=== PATIENT | female | born 1995 | race Caucasian/White ===

== ENCOUNTER 2019-06-12 22:42 | Emergency (ER) | payer BC, MEDICAID ==
[2019-06-12] MEDS ORDERED: 0.9 % SODIUM CHLORIDE 1,000 ML BAG IV ONE (22:54)
--- NOTE | 2019-06-12 22:59 | Emergency Department Record ---
History of Present Illness - General Chief Complaint: Confusion Stated Complaint: NOT FEELING RIGHT Time Seen by Provider: 06/12/19 22:44 Source: Patient, Family Mode of Arrival: Ambulatory Limitations: No limitations - History of Present Illness Initial Comments: 24 yo female presents "not feeling normal". She is the primary historian. She states she woke up at 10am feeling normal. She works at a restaurant starting at 5pm. After about 2 hours of work she states she felt hot, sweaty, and nauseated. She has felt weak since then. No vomiting. She states she feels emotional with crying at times. She denies drugs or alcohol. She is not on any medications. No headache, chest pain, cough, abdominal pain. She has been in her usual states of health. She does report her menstrual cycles have been irregular for a few months. MD Complaint: Weakness Onset/Timin -: Hour(s) Severity: Mild Consistency: Constant Context: Other (Onset at work) Associated Symptoms: Nausea/Vomiting (nausea without vomiting), Weakness Treatment Prior to Arrival Comment:: ate dinner - [place] Coma Scale Eye Response: (4) Open spontaneously Motor Response: (6) Obeys commands Verbal Response: (5) Oriented [place] Total: 15 - Symptoms of Stroke Onset of Symptoms Date: 06/12/19 - Related Data Home Medications Medication Instructions Recorded Confirmed Last Taken No Home Med [NO HOME MEDS] 06/12/19 06/12/19 Unknown Allergies Allergy/AdvReac Type Severity Reaction Status Date / Time No Known Drug Allergies Allergy Verified 06/12/19 22:55 Travel Screening - Travel/Exposure Within Last 30 Days Have you traveled within the last 30 days?: No - Travel/Exposure Within Last Year Have you traveled outside the [place] in the last year?: No - Additonal Travel Details Have you been exposed to anyone with a communicable illness?: No - Travel Symptoms Symptom Screening: None Review of Systems Constitutional: Reports: Weakness. Denies: Chills, Fever, Malaise Eyes: Denies: Eye discharge, Eye pain, Photophobia, Vision change ENT: Denies: Congestion, Dental pain, Ear pain, Epistaxis, Throat pain Respiratory: Denies: Cough, Dyspnea, Hemoptysis, Stridor, Wheezes Cardiovascular: Denies: Arrhythmia, Chest pain, Edema, Palpitations, Syncope Endocrine: Reports: Fatigue. Denies: Polydipsia, Polyuria Gastrointestinal: Reports: Nausea. Denies: Abdominal pain, Diarrhea, Vomiting Genitourinary: Reports: As per HPI, Abnormal menses. Denies: Dysuria, Hematuria, Urgency Musculoskeletal: Denies: Arthralgia, Back pain, Myalgia Skin: Denies: Bruising, Change in color, Rash Neurological: Denies: Abnormal gait, Confusion (No confusion but "feels off"), Headache, Numbness, Paresthesias, Seizure, Tingling, Tremors, Vertigo, Weakness Psychiatric: Reports: Other Hematological/Lymphatic: Denies: Easy bleeding, Easy bruising Past Medical History - SOCIAL HISTORY Smoking Status: Never smoker Alcohol Use: None Drug Use: None - RESPIRATORY Hx Respiratory Disorders: No - CARDIOVASCULAR Hx Cardio Disorders: No - NEURO Hx Neuro Disorders: No - GI Hx GI Disorders: No - Hx Genitourinary Disorders: No - ENDOCRINE Hx Endocrine Disorders: No - MUSCULOSKELETAL Hx Musculoskeletal Disorders: No - PSYCH Hx Psych Problems: No Family Medical History Any Significant Family History?: Yes Physical Exam - General General Appearance: Alert, Oriented x3, Cooperative, No acute distress, Other (The patient is calm, seems relaxed, clear fluent speech, no confusion, good historian) - Head Head exam: Atraumatic, Normocephalic, Normal inspection Head exam detail: negative: Abrasion, Contusion, Hematoma - Eye Eye exam: Normal appearance, PERRL, EOMI. negative: Conjunctival injection, Nystagmus, Periorbital swelling, Scleral icterus - ENT ENT exam: Normal exam, Mucous membranes moist Ear exam: Normal external inspection Nasal Exam: Normal inspection Mouth exam: Normal external inspection - Neck Neck exam: Normal inspection. negative: Lymphadenopathy, Tenderness - Respiratory Respiratory exam: Normal lung sounds bilaterally. negative: Respiratory distress - Cardiovascular Cardiovascular Exam: Regular rate, Normal rhythm, Normal heart sounds Peripheral Pulses: 2+: Radial (R), Radial (L) - GI/Abdominal GI/Abdominal exam: Soft - Rectal Rectal exam: Deferred - exam: Deferred - Extremities Extremities exam: Normal inspection, Full ROM. negative: Calf tenderness, Pedal edema, Tenderness - Back Back exam: Denies: CVA tenderness (R), CVA tenderness (L) - Neurological Neurological exam: Alert, CN II-XII intact, Normal gait, Oriented X3. negative: Abnormal gait, Motor sensory deficit, Reflexes normal - Psychiatric Psychiatric exam: Normal affect, Normal mood, Other (broke into tears once during interview) - Skin Skin exam: Dry, Intact, Normal color, Warm Course Vital Signs 06/12/19 22:44 Pulse Rate 107 H Respiratory 16 Rate Blood Pressure 137/96 Pulse Ox 98 - Reevaluation(s) Reevaluation #1: The patient was seen and examined Vitals reviewed. No abnormalities She is well appearing and has an unremarkable examination without obvious abnormal findings She is appropriate and a very good historian. She does not demonstrate any signs of altered mental status. She did express that she is worried someone could have "slipped" her something at work. She denies every doing drugs. Very rare alcohol use. 06/12/19 23:29 The CBC was reviewed No acute abnormality The UDS is negative The alcohol is negative The patient is relaxed and conversational. 06/12/19 23:39 The CMP is normal The HCG is negative The UA is negative 06/13/19 00:09 The patient continues to do very well. She is relaxed. Waiting for CT report. Normal behavior and interaction on recheck. 06/13/19 00:22 The HCT is normal. No acute process 06/13/19 00:22 We discussed the results of the tests and questions were answered. The patient is doing well and is comfortable with DC. DC vitals were reviewed. Her examination, interaction, and behavior have been normal I do not find any acute process or acute medical condition We discussed at length reasons to immediately return to the ED as well as close follow up. The patient will call the PCP for close follow up of this ED visit to review thi s visit and the tests performed Medical Decision Making - Lab Data Result diagrams: 06/12/19 23:00 06/12/19 23:00 Disposition Disposition: Discharge Clinical Impression: Weakness Disposition: Home, Self-Care Condition: (1) Good Instructions: Weakness (ED) Additional Instructions: Call your doctor for the next available follow up appointment Review this ER visit and the tests performed with your family doctor Return to the ER for a recheck if worse, any new concerns or questions Forms: Patient Portal Access Time of Disposition: 00:24 Quality - Quality Measures Quality Measures: N/A - Blood Pressure Screening Does Patient Have Any of the Following: No Blood Pressure Classification: Hypertensive Reading Systolic Measurement: 137 Diastolic Measurement: 96 Screening for High Blood Pressure: < Normal BP, F/U Not Required > [G2107]
[2019-06-12 23:12] LABS: ABSOLUTE NEUTROPHIL COUNT 4.49; BASO % 0.3 % (0-6); EOS % 1.1 % (0-6); GRAN % 59.6 % (47-80); HEMATOCRIT 43.1 % (35.0-47.0); HEMOGLOBIN 15.1 gm/dl (11.6-16.0); MEAN CELL VOLUME 86.4 fl (81-97); MEAN CORPUSCULAR HEMOGLOBIN 30.3 pg (27-33); MEAN PLATELET VOLUME 10.6 fl (7.4-10.4); PLATELET COUNT 245 K/uL (130-400); RED BLOOD COUNT 4.99 M/uL (3.80-5.40); RED CELL DISTRIBUTION WIDTH 11.7 % (11.5-14.5); WHITE BLOOD COUNT W/O DIFF 7.5 K/uL (4.2-12.2)
[2019-06-12 23:14] LABS: URINE APPEARANCE CLEAR; URINE BILIRUBIN NEGATIVE (NEGATIVE); URINE BLOOD MODERATE (NEGATIVE); URINE COLOR YELLOW; URINE GLUCOSE (UA) NEGATIVE (NEGATIVE); URINE KETONE NEGATIVE (NEGATIVE); URINE LEUKOCYTE ESTERASE TRACE (NEGATIVE); URINE NITRITE NEGATIVE (NEGATIVE); URINE PROTEIN NEGATIVE (NEGATIVE); URINE UROBILINOGEN 0.2 E.U./dL (0.20 - 1.00)
[2019-06-12 23:16] LABS: AMPHETAMINE SCREEN URINE NOT DETECTED; BARBITURATE SCREEN URINE NOT DETECTED; BENZODIAZEPINE SCREEN URINE NOT DETECTED; COCAINE SCREEN URINE NOT DETECTED; METHADONE SCREEN URINE NOT DETECTED; METHAMPHETAMINE SCREEN NOT DETECTED; OPIATE SCREEN URINE NOT DETECTED; OXYCODONE SCREEN URINE NOT DETECTED; PHENCYCLIDINE SCREEN URINE NOT DETECTED; PROPOXYPHENE SCREEN URINE NOT DETECTED; THC SCREEN URINE NOT DETECTED; TRICYCLIC ANTIDEPRESSANT SCRN NOT DETECTED
[2019-06-12 23:19] LABS: BLOOD UREA NITROGEN 8 mg/dL (6-20); CREATININE 0.6 mg/dL (0.5-0.9); EST GLOMERULAR FILTRATION RATE > 60 mL/min; TOTAL PROTEIN 6.8 g/dL (6.6-8.7)
[2019-06-12 23:21] LABS: GLUCOSE,RANDOM 97 mg/dL (74-109)
[2019-06-12 23:23] LABS: URINE BACTERIA NONE SEEN; URINE RBC 0 - 2 (NONE SEEN); URINE WBC 0 - 2 (0-2/hpf)
[2019-06-12 23:24] LABS: ALB/GLOB RATIO 1.8 (1.1-1.8); ALBUMIN 4.4 g/dL (4.0-5.0); ALKALINE PHOSPHATASE 80 U/L (35-104); ALT/SGPT 16 U/L (<33); AST/SGOT 23 U/L (10.0-35.0)
[2019-06-12 23:33] LABS: ACETAMINOPHEN < 5.0 ug/mL (10.0-30.0); SALICYLATE 0.9 mg/dL (2.8-20)
[2019-06-12 23:35] LABS: THYROID STIMULATING HORMONE 2.35 uIU/mL (0.270-4.20)
--- NOTE | 2019-06-13 13:44 | CT SCAN REPORT ---
EXAM: HEAD CT WITHOUT CONTRAST HISTORY: CONFUSION AND DIZZINESS FOR ABOUT THREE HOURS. TECHNIQUE: Axial CT scan of the head was performed without IV contrast. A preliminary report was provided by [facility]. Comparison: No prior head CT with which to compare. FINDINGS: No definite acute intracranial hemorrhage identified. No focal mass effect or midline shift evident. No definite acute infarct or intracranial mass lesion is seen. No depressed calvarial fracture evident. IMPRESSION: EMERGENCY NONCONTRAST HEAD CT APPEARS NEGATIVE WITH NO DEFINITE ACUTE INTRACRANIAL HEMORRHAGE OR FOCAL MASS EFFECT IDENTIFIED. JOB NUMBER: [id number] [facility]
== END 2019-06-13 00:32 | disposition home or self-care (01) ==
LOC: ER 22:42
DX: R41.0 Disorientation, unspecified (principal); R53.1 Weakness; R11.0 Nausea
CPT/HCPCS: 70450; 80053; 80305; 80320; 80329; 81001; 84443; 84703; 85025; 96360; 99284; J7030